=== PATIENT | female | born 1975 | race Caucasian/White ===

== ENCOUNTER 2024-03-05 06:56 | Outpatient (OUT) | payer OTHER, SELFPAY ==
--- NOTE | 2024-03-05 07:00 | MM_ITS ---
Patient Name: CAROLINE RAMIREZ MR#: [id number] : 1975 Exam Date: 03/05/2024 Ordering Doctor: DR Radha Brian M.D. RADIOLOGY REPORT PROCEDURE: MM TOMOSYNTHESIS SCREENING BI COMPARISON: MAMMO BILL SCREEN W CAD DIG, 01/13/2013. MG MAMM SCREEN BILL W CAD, 07/10/2018. INDICATIONS: Screening Calculator Name NCI Breast Cancer Risk Assessment Tool 5 Year Breast Cancer Risk 0.90% Lifetime Breast Cancer Risk 10.50% Personal Breast Cancer No Personal Ovarian Cancer No Treatments None Family Cancers None LOCATION: [facility] BREAST COMPOSITION: The breasts are heterogeneously dense,which may obscure small masses. FINDINGS: DIAGNOSTIC CATEGORY 2--BENIGN FINDING. NO CHANGE FROM COMPARISON. Scattered benign-appearing nodules are present. Scattered benign-appearing calcifications are present. Scattered benign-appearing lymph nodes are present. RIGHT BREAST: No significant suspicious finding. LEFT BREAST: No significant suspicious finding. RECOMMENDATIONS: ROUTINE MAMMOGRAM AND CLINICAL EVALUATION IN 12 MONTHS. PLEASE NOTE: A NORMAL MAMMOGRAM DOES NOT EXCLUDE THE POSSIBILITY OF BREAST CANCER. A CLINICALLY SUSPICIOUS PALPABLE LUMP SHOULD BE BIOPSIED. Dictated by: Chapito Alves MD on 03/24/2024 at 13:47 Approved by: Chapito Alves MD on 03/24/2024 at 13:52
== END 2024-03-05 06:57 | disposition home or self-care (01) ==
LOC: MAMMO 06:56
PROVIDERS: PCP Family Medicine; Visit Provider Family Medicine
DX: Z12.31 Encounter for screening mammogram for malignant neoplasm of breast (principal)
CPT/HCPCS: 77063; 77067

== ENCOUNTER 2025-07-11 07:31 | Outpatient (OUT) | payer OTHER, SELFPAY ==
--- OUTSIDE RECORDS SUMMARY | 2021-11-15 12:15 | XMS_ITS | Continuity of Care Document ---
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 Name Role Phone Mart Brown Unavailable Unavailable Procedures Procedure Date CHIROPRACTIC MANIPULATION CHIROPRACTIC MANIPULATION CHIROPRACTIC MANIPULATION CHIROPRACTIC MANIPULATION CHIROPRACTIC MANIPULATION CHIROPRACTIC MANIPULATION CHIROPRACTIC MANIPULATION CHIROPRACTIC MANIPULATION CHIROPRACTIC MANIPULATION CHIROPRACTIC MANIPULATION CHIROPRACTIC MANIPULATION CHIROPRACTIC MANIPULATION CHIROPRACTIC MANIPULATION CHIROPRACTIC MANIPULATION CHIROPRACTIC MANIPULATION CHIROPRACTIC MANIPULATION CHIROPRACTIC MANIPULATION CHIROPRACTIC MANIPULATION CHIROPRACTIC MANIPULATION CHIROPRACTIC MANIPULATION CHIROPRACTIC MANIPULATION CHIROPRACTIC MANIPULATION CHIROPRACTIC MANIPULATION CHIROPRACTIC MANIPULATION CHIROPRACTIC MANIPULATION CHIROPRACTIC MANIPULATION CHIROPRACTIC MANIPULATION Covid Testing [facility] Advance Directives Directive Yes / No Effective Date File Name No Information Encounters Encounter Description Practice Location Reason(s) For Visit Diagnoses Date Provider Providers Copied on Encounter [facility], [address] [place] [address], [id number] , [place] tel: [phone] [facility] cervical spine (chief complaint) cervical spine (chief complaint) Segmental and somatic dysfunction of cervical regionCervicalgiaSegm ental and somatic dysfunction of lumbar region 2 Kevin Cevallos. [address] [place], [place], [id number] , [place]. tel: [phone] [facility], [address] [place] [address], [id number] , [place] tel: [phone] [facility] cervical spine (chief complaint) cervical spine (chief complaint) Segmental and somatic dysfunction of cervical regionCervicalgiaSegm ental and somatic dysfunction of lumbar region 1 Kevin Cevallos. [address] [place] [address], [id number] , [place]. tel: [phone] [facility], [address] [place] [address], [id number] , [place] tel: [phone] [facility] cervical spine (chief complaint) cervical spine (chief complaint) Segmental and somatic dysfunction of cervical regionCervicalgiaSegm ental and somatic dysfunction of thoracic region 1 Kevin Cevallos. [address] [place] [address], [id number] , [place]. tel: [phone] [facility], [address] [place] [address], [id number] , [place] tel: [phone] [facility] cervical spine (chief complaint) cervical spine (chief complaint) Segmental and somatic dysfunction of cervical regionCervicalgiaSegm ental and somatic dysfunction of lumbar region 1 Kevin Cevallos. [address] [place] [address], [id number] , [place]. tel: [phone] [facility], [address] [place] [address], [id number] , [place] tel: [phone] [facility] cervical spine (chief complaint) cervical spine (chief complaint) Segmental and somatic dysfunction of cervical regionCervicalgiaSegm ental and somatic dysfunction of thoracic region 1 Kevin Cevallos. [address] [place], [place], [id number] , [place]. tel: [phone] [facility], [address] [place] [address], [id number] , [place] tel: [phone] [facility] cervical spine (chief complaint) cervical spine (chief complaint) Segmental and somatic dysfunction of cervical regionCervicalgiaSegm ental and somatic dysfunction of lumbar region 1 Kevin Cevallos. [address] [place] [address], [id number] , [place]. tel: [phone] [facility], [address] [place] [address], [id number] , [place] tel: [phone] [facility] cervical spine (chief complaint) cervical spine (chief complaint) Segmental and somatic dysfunction of cervical regionCervicalgiaSegm ental and somatic dysfunction of thoracic regionPain in thoracic spine 1 Kevin Cevallos. [address] [place] [address], [id number] , [place]. tel: [phone] [facility], [address] [place] [address], [id number] , [place] tel: [phone] [facility] cervical spine (chief complaint) cervical spine (chief complaint) Segmental and somatic dysfunction of cervical regionCervicalgiaSegm ental and somatic dysfunction of thoracic region 1 Kevin Cevallos. [address] [place] [address], [id number] , [place]. tel: [phone] [facility], [address] [place] [address], [id number] , [place] tel: [phone] [facility] cervical spine (chief complaint) cervical spine (chief complaint) Segmental and somatic dysfunction of cervical regionCervicalgiaSegm ental and somatic dysfunction of thoracic region Dec-0 1 Kevin Cevallos. [address] [place] [address] [place], [id number] , [place]. tel: [phone] [facility], [address] [place], [place], [id number] , [place] tel: [phone] [facility] cervical spine (chief complaint) cervical spine (chief complaint) Segmental and somatic dysfunction of cervical regionCervicalgiaSegm ental and somatic dysfunction of thoracic region 1 Kevin Cevallos. [address] [place], [place], [id number] , [place]. tel: [phone] [facility], [address] [place] [address], [id number] , [place] tel: [phone] [facility] cervical spine (chief complaint) cervical spine (chief complaint) Segmental and somatic dysfunction of cervical regionCervicalgiaHead ache, unspecifiedSegmental and somatic dysfunction of thoracic region 1 Kevin Cevallos. [address] [place] [address], [id number] , [place]. tel: [phone] [facility], [address] [place] [address], [id number] , [place] tel: [phone] [facility] cervical spine (chief complaint) cervical spine (chief complaint) Segmental and somatic dysfunction of cervical regionCervicalgiaHead ache, unspecifiedSegmental and somatic dysfunction of thoracic region 1 Kevin Cevallos. [address] [place] [address], [id number] , [place]. tel: [phone] [facility], [address] [place] [address], [id number] , [place] tel: [phone] [facility] cervical spine (chief complaint) cervical spine (chief complaint) Segmental and somatic dysfunction of cervical regionCervicalgiaHead ache, unspecifiedSegmental and somatic dysfunction of thoracic region 1 Kevin Cevallos. [address] [place] [address], [id number] , [place]. tel: [phone] [facility], [address] [place] [address], [id number] , [place] tel: [phone] [facility] cervical spine (chief complaint) cervical spine (chief complaint) Segmental and somatic dysfunction of cervical regionCervicalgiaHead ache, unspecifiedSegmental and somatic dysfunction of thoracic region 0 3-202 0 Kevin Cevallos. [address] [place], [place], [id number] , [place]. tel: [phone] [facility], [address] [place], [place], [id number] , [place] tel: [phone] [facility] cervical spine (chief complaint) cervical spine (chief complaint) Segmental and somatic dysfunction of cervical regionCervicalgiaSegm ental and somatic dysfunction of thoracic region 0 Kevin Cevallos. [address] [place] [address], [id number] , [place]. tel: [phone] [facility], [address] [place] [address], [id number] , [place] tel: [phone] [facility] cervical spine (chief complaint) cervical spine (chief complaint) Segmental and somatic dysfunction of cervical regionCervicalgiaHead ache, unspecifiedSegmental and somatic dysfunction of thoracic region 0-202 0 Kevin Cevallos. [address] [place] [address], [id number] , [place]. tel: [phone] [facility], [address] [place] [address], [id number] , [place] tel: [phone] [facility] cervical spine (chief complaint) cervical spine (chief complaint) Segmental and somatic dysfunction of cervical regionCervicalgiaSegm ental and somatic dysfunction of thoracic region 5 0 Kevin Cevallos. [address] [place] [address], [id number] , [place]. tel: [phone] [facility], [address] [place] [address], [id number] , [place] tel: [phone] [facility] cervical spine (chief complaint) cervical spine (chief complaint) Segmental and somatic dysfunction of lumbar regionSegmental and somatic dysfunction of cervical regionCervicalgia 0 Kevin Cevallos. [address] [place], [place], [id number] , [place]. tel: [phone] [facility], [address] [place], [place], [id number] , [place] tel: [phone] [facility] cervical spine (chief complaint) cervical spine (chief complaint) Segmental and somatic dysfunction of cervical regionCervicalgiaSegm ental and somatic dysfunction of thoracic region 0 Kevinbakari Cevallos. [address] [place] [address], [id number] , [place]. tel: [phone] [facility], [address] [place] [address], [id number] , [place] tel: [phone] [facility] cervical spine (chief complaint) cervical spine (chief complaint) Segmental and somatic dysfunction of cervical regionCervicalgiaHead ache, unspecifiedSegmental and somatic dysfunction of thoracic region 0 Kevin Cevallos. [address] [place] [address], [id number] , [place]. tel: [phone] [facility], [address] [place] [address], [id number] , [place] tel: [phone] [facility] cervical spine (chief complaint) cervical spine (chief complaint) Segmental and somatic dysfunction of cervical regionCervicalgiaHead acheSegmental and somatic dysfunction of thoracic region Jun-3 0 Kevin Cevallos. [address] [place] [address], [id number] , [place]. tel: [phone] [facility], [address] [place] [address], [id number] , [place] tel: [phone] [facility] cervical spine (chief complaint) cervical spine (chief complaint) Segmental and somatic dysfunction of cervical regionCervicalgiaSegm ental and somatic dysfunction of thoracic region Jun- 0 Kevin Cevallos. [address] [place] [address], [id number] , [place]. tel: [phone] [facility], [address] [place] [address], [id number] , [place] tel: [phone] [facility] cervical spine (chief complaint) cervical spine (chief complaint) Segmental and somatic dysfunction of cervical regionCervicalgiaSegm ental and somatic dysfunction of lumbar region Jun-0 4-202 0 Kevin Cevallos. [address] [place], [place], [id number] , [place]. tel: [phone] [facility], [address] [place] [address], [id number] , [place] tel: [phone] [facility] cervical spine (chief complaint) cervical spine (chief complaint) Segmental and somatic dysfunction of cervical regionCervicalgiaSegm ental and somatic dysfunction of lumbar region 0-202 0 Kevin Cevallos. [address] [place] [address], [id number] , [place]. tel: [phone] [facility], [address] [place] [address], [id number] , [place] tel: [phone] [facility] cervical spine (chief complaint) cervical spine (chief complaint) Segmental and somatic dysfunction of cervical regionCervicalgiaSegm ental and somatic dysfunction of lumbar region 5-202 0 Kevin Cevallos. [address] [place] [address], [id number] , [place]. tel: [phone] [facility], [address] [place] [address], [id number] , [place] tel: [phone] [facility] cervical spine (chief complaint) cervical spine (chief complaint) Segmental and somatic dysfunction of cervical regionCervicalgiaHead acheSegmental and somatic dysfunction of lumbar region 8-202 0 Kevin Cevallos. [address] [place] [address], [id number] , [place]. tel: [phone] [facility], [address] [place] [address], [id number] , [place] tel: [phone] [facility] cervical spine (chief complaint) cervical spine (chief complaint) Segmental and somatic dysfunction of cervical regionCervicalgiaSegm ental and somatic dysfunction of lumbar regionLow back pain Mar-2 0 Kevin Cevallos. [address] [place], [place], [id number] , [place]. tel:[phone] [facility], [address] [place], [place], [id number] , [place] tel: [phone] SYLWIAKHOA JAKUB Encounter for screening for other viral diseases 0 Zoya DO [place]. [address] [place], [place], [id number] , [place]. tel: [phone] Family History Family Member Type Diagnosis Age At Onset No Information Payers Payer name Insurance type Covered constitution party ID Authoryarelis gray(s) [employer] [place] [employer] [id number] Social History Type Description Quantity Date Captured Comments Alcohol Use Details Unknown Caffeine Use Details Unknown Tobacco Use Status No Information Smoking Status No Information Sex Female Sexual Orientation Straight or heterosexual Gender Identity Female Chief Complaint And Reason For Visit From encounter dated '11/15/2021 16:15'. cervical spine (chief complaint) cervical spine (chief complaint). Description: Pt reports tightness in neck and low back this week Reason For Referral Reason For Referral No Information History Of Present Illness Encounter Date Complaint History Of Prese nt Illness cervical spine Pt reports tight ness in neck and low back this week cervical spine cervical spine cervical spine Pt reports sligh t improvement since last visit. cervical spine cervical spine Pt presents with tension in neck and shoulders this week cervical spine cervical spine Pt presents with tightness in neck and low back this week. cervical spine cervical spine Pt presents with tightness in neck and mid back cervical spine cervical spine Pt presents with tightness in neck cervical spine cervical spine Pt reports stiff ness in neck and upper back this week. cervical spine cervical spine Pt reports tight ness in neck and mid back this week. cervical spine cervical spine Pt reports tight ness in neck and upper back this week. cervical spine cervical spine Pt presents with tightness in neck and upper back. cervical spine cervical spine Pt reports sligh t improvement since last visit. cervical spine Pt reports impro vement with headache today. cervical spine cervical spine cervical spine Pt reports neck soreness and headaches for last few days. cervical spine cervical spine Pt reports neck stiffness along with headache this week. cervical spine cervical spine Pt presents with tightness in neck and mid back today cervical spine cervical spine Pt reports wakin g up with headache today. cervical spine cervical spine Pt reports tight ness in neck and mid back this week. cervical spine cervical spine Pt reports marissa ess in neck and low back this week. cervical spine cervical spine Pt reports tight ness in neck and upper back this week. cervical spine cervical spine Pt reports neck stiffness and headache this week. cervical spine cervical spine Pt reports heada nadira for last two days and feels like it's coming from neck. cervical spine cervical spine Pt reports stiff ness in neck and upper back this week. cervical spine cervical spine Pt presents with tightness in neck and upper back this week. cervical spine cervical spine Pt reports tight ness in neck and upper back. cervical spine cervical spine Pt reports neck feeling a little better this week. cervical spine cervical spine Pt reports wakin g up with headache this morning. cervical spine cervical spine C/O neck pain an d low back pain with onset years ago. Pt experiences frequent flare ups due to ADL's.No specific injury or trauma is noted. Pain primarily at the cervicobrachial area and extends out to the trap and scapular border on the Rt. & Lt. Pain is local, dull, and without radiation to the upper extremities. Sx present with a pain scale of 7 (VAS = 1-10). Pain interferes with regular ADL's. Increase in pain with movement/ROM and ADL'S. Some decrease in Sx with rest. No change in the pain pattern from the onset of Sx. Functional Status Date Functional Assessmen t No Information Instructions Date Instruction Additional Infor mation No Information Assessments Type Assessment Date assessment Segmental and somatic dysfunctio n of cervical region assessment Cervicalgia assessment Segmental and somatic dysfunctio n of lumbar region impression Patient Care Teams Name Effective Dates (start - stop) Status Members No Information
--- OUTSIDE RECORDS SUMMARY | 2025-07-11 07:34 | XMS_ITS | CCD ---
Author Organization [facility] Care Team Providers Care Engineering Technical Writer Name Role Phone Radha Cardozo MD Primary Care Provider FARA BECKMAN Referring Unavailable RADHA CARDOZO Primary Care Unavailable FARA BECKMAN Referring Unavailable RADHA CARDOZO Primary Care Unavailable RADHA CARDOZO Primary Care Unavailable FARA BECKMAN Referring Unavailable JULIANE, DR RADHA Hogue Admitting Unavailable JULIANE, DR RADHA Hogue Attending Unavailable JULIANE, DR RADHA Hogue Primary Care Unavailable WEST, DR STEPHANIE Gomez Consulting Unavailable JULIANE, DR RADHA Hogue Consulting Unavailable Radha Cardozo Unavailable MD Radha Cardozo Primary Care Provider [phone] MD Reyes Love Attending Provider [phone] Radha Cardozo MD Primary Care Provider [phone] Mart Stanley MD Unavailable Radha Cardozo MD Primary Care Provider Reyes Love MD Attending Provider Reyes Love Admitting Unavailable Radha Cardozo Primary Care Unavailable Reyes Love Attending Unavailable Radha Cardozo Primary Care Unavailable Reyes Love Attending Unavailable Reyes Love Admitting Unavailable Radha Cardozo MD Primary Care Provider [phone] MONA SNIDER Attending Unavailable Radha Cardozo MD Primary Care Provider [phone] Radha Cardozo MD Attending Provider Allergies Allergy Classification Reported Allergen(s) Allergy Type Date of Onset Reaction(s) Facility terbinafine (3 sources) terbinafine Drug Allergy 1 [employer] (10 sources) terbinafine Drug Allergy [employer] Other (1 source) terbinafine Drug Allergy Unknown [employer] Other (1 source) patient allergy list reviewed by nurse or physicia Propensity to adverse reactions 8 Comment:Done [employer] Other (1 source) Allergies Reconciled Propensity to adverse reactions Unknown [employer] Other (18 sources) terbinafine Drug Allergy 1 [facility] (12 sources) Starch; Translations: [starch] Drug Allergy 4 [facility] (12 sources) Talc; Translations: [talc] Drug Allergy 4 [facility] (1 source) terbinafine Drug Allergy 5 [facility] Repository Medications Current Medications Medication Drug Class(es) Dates Sig (Normalized) Sig (Original) acetaminophen 325 mg / oxyCODONE hydrochloride 5 mg oral tablet (20 sources) Opioid Agonist Start: 01-22-2025 End: 05-21-2025 take 1 tablet by mouth every eight hours as needed for pain Oxycodone-Acetami nophen (Percocet) 5-325 mg tablet Active 1 TAB PO Every 8 hours as needed for pain 80 May 21, 2025 Complies with drug therapy Start: 12-19-2023 End: 01-21-2025 take 1 tablet by mouth every eight hours as needed for pain Oxycodone-Acetaminophen (Percocet) 5-325 mg tablet Discontinued 1 TAB PO Every 8 hours as needed for pain 80 August 30, 2024 September 27, 2024 11:14am Start: 10-25-2023 take 1 tablet by irma th twice daily as needed Percocet 5-325 MG 1 tablet as needed Orally bid prn Sep, Active Start: 09-24-2023 take 1 tablet by irma th twice daily as needed Percocet 5-325 MG 1 tablet as needed Orally bid prn for 30 days Aug, Active Start: 08-27-2023 take 1 tablet by irma th twice daily as needed Percocet 5-325 MG 1 tablet as needed Orally bid prn for 30 days Aug, Active Start: 07-30-2023 take 1 tablet by irma th twice daily as needed Percocet 5-325 MG 1 tablet as needed Orally bid prn for 30 days Jul, Active Start: 07-03-2023 take 1 tablet by irma th twice daily as needed Percocet 5-325 MG 1 tablet as needed Orally bid prn for 30 days Jun, Active Start: 03-05-2023 take 1 tablet by irma th twice daily as needed Percocet 5-325 MG 1 tablet as needed Orally bid prn for 30 days February, Active Start: 02-06-2023 take 1 tablet by irma th twice daily as needed Percocet 5-325 MG 1 tablet as needed Orally bid prn for 30 days Jan, Active Start: 01-09-2023 take 1 tablet by irma th twice daily as needed Percocet 5-325 MG 1 tablet as needed Orally bid prn for 30 days Dec, Active Start: 12-13-2022 take 1 tablet by irma th twice daily as needed Percocet 5-325 MG 1 tablet as needed Orally bid prn for 30 days Nov, Active Start: 04-23-2018 take 2 tablets by mo tnh every four hours as needed oxyCODONE-acetaminophen (PERCOCET) 5-325 MG per tablet TAKE 2 TABLETS BY MOUTH EVERY 4 HOURS NEEDED 0 04/23/2018 Active SUMAtriptan 50 mg oral tablet (3 sources) Serotonin-1b and Serotonin-1d Receptor Agonist Start: 02-23-2021 SUMAtriptan (IMITREX ) 50 MG tablet Ubrelvy 100 MG (4 sources) Ubrelvy 100 MG 1 tablet may take second dose at least 2 hours after first dose as needed Orally Once a day Active ZOLMitriptan 5 mg/actuat nasal spray (20 sources) Serotonin-1b and Serotonin-1d Receptor Agonist Start: 12-21-2024 ZOLMitriptan (Zomig) 5 MG nasal solution Indications: Migraine, unspecified, not intractable, without status migrainosus (CMS/HCC) PLEASE SEE ATTACHED FOR DETAILED DIRECTIONS 6 each 3 12/21/2024 Active Start: 08-23-2024 ZOLMitriptan ( Zomig) 5 MG nasal solution Indications: Migraine, unspecified, not intractable, without status migrainosus (CMS/HCC) PLEASE SEE ATTACHED FOR DETAILED DIRECTIONS 6 each 3 08/23/2024 Active Start: 04-05-2024 End: 08-23-2024 ZOLMitriptan (Zomig) 5 MG na orin solution Indications: Migraine, unspecified, not intractable, without status migrainosus ([facility]) USE 1 SPRAY IN ONE NOSTRIL AT ONSET OF HEADACHE. MAY REPEAT AFTER 2 HOURS (UP TO 2 DOSES PER 24 HOURS NEEDED) 6 each 3 04/05/2024 08/23/2024 Discontinued Start: 02-13-2024 End: 05-21-2025 Zolmitriptan 5 mg spray,non- aerosol Active 0 INTRANASAL .COMPLEX 6 May 21, 2025 7:10am intranasally; [employer] spray at onset of headache may repeat after 2 hours up to 10 mg per 24 hours as needed Nasally Once a day; Note: Source Status: Continue; Provider: Juliane Garcia ( ) Complies with drug therapy Start: 02-13-2024 Zolmitriptan A ctive INTRANASAL February 13, 2024 12:00am [employer] spray at onset of headache may repeat after 2 hours up to 10 mg per 24 hours as needed Nasally Once a day; Note: Source Status: Continue; Provider: Juliane Garcia ( ) Zomig 5 MG 1 spr ay at onset of headache may repeat after 2 hours up to 10 mg per 24 hours as needed Nasally Once a day Active Completed/Discontinued Medications Medication Drug Class(es) Dates Sig (Normalized) Sig (Original) diclofenac sodium 75 mg delayed release oral tablet (10 sources) Nonsteroidal Anti-inflammatory Drug Start: 03-23-2024 End: 05-25-2024 take 1 tablet by mouth twice daily Diclofenac Sodium 75 mg tablet,delayed release (DR/EC) Discontinued 75 MG PO Twice daily 60 30 March 23, 2024 12:00am May 25, 2024 11:41am tiZANidine 4 mg oral tablet (20 sources) Central alpha-2 Adrenergic Agonist Start: 02-11-2024 End: 12-24-2024 take 1 tablet by mouth once daily at bedtime Tizanidine 4 mg tablet Discontinued 4 MG PO Daily at bedtime 90 90 May 25, 2024 11:41am September 27, 2024 11:14am Start: 02-11-2024 End: 05-25-2024 take 1 tablet by mouth three times daily as needed Tizanidine 4 mg tablet Discontinued 4 MG PO Three times daily February 13, 2024 12:00am May 25, 2024 11:46am [employer] tablet as needed Orally Three times a day; Note: Source Status: Continue; Provider: Juliane Garcia ( ) Start: 02-12-2018 take 1 tablet by irma th at bedtime tiZANidine (ZANAFLEX) 4 MG tablet TAKE 1/2-1 TABLET BY MOUTH AT BEDTIME 0 02/12/2018 Active traMADol hydrochloride 50 mg oral tablet (20 sources) Opioid Agonist Start: 02-12-2024 End: 02-16-2024 take 1 tablet by mouth three times daily Tramadol 50 mg tablet Discontinued 50 MG PO Three times daily February 12, 2024 12:00am February 16, 2024 11:40am Start: 10-01-2023 take 1 tablet by irma th three times daily as needed traMADol HCl 50 MG TAKE 1 TABLET BY MOUTH THREE TIMES DAILY NEEDED Sep, Active Start: 07-30-2023 take 1 tablet by irma th three times daily as needed traMADol HCl 50 MG TAKE 1 TABLET BY MOUTH THREE TIMES DAILY NEEDED for 30 Jul, Active Start: 06-11-2023 take 1 tablet by irma th three times daily as needed traMADol HCl 50 MG TAKE 1 TABLET BY MOUTH THREE TIMES DAILY NEEDED for 30 May, Active Start: 02-20-2023 take 1 tablet by irma th three times daily as needed traMADol HCl 50 MG TAKE 1 TABLET BY MOUTH THREE TIMES DAILY, NEEDED for 30 Jan, Active Start: 12-13-2022 take 1 tablet by irma th three times daily as needed traMADol HCl 50 MG TAKE 1 TABLET BY MOUTH THREE TIMES DAILY, NEEDED 30 for 30 Dec, Active Start: 04-14-2018 take 1 tablet by irma th every eight hours as needed traMADol (ULTRAM) 50 MG tablet TAKE 1 TABLET BY MOUTH EVERY 8 HOURS NEEDED 3 04/14/2018 Active Problems Active Problems Problem Classification Problem Date Documented Da te Episodic/Chronic Blindness and vision defects (10 sources) Bilateral myopia of eyes; Translations: [Myopia, bilateral] Episodic Deficiency and other anemia (11 sources) Anemia; Translations: [Anemia, unspecified] Episodic Headache; including migraine (20 sources) Migraine with aura; Translations: [Migraine with aura, not intractable, without status migrainosus] Chronic Other circulatory disease (1 source) Elevated blood-pressure reading without diagnosis of hypertension; Translations: [Elevated blood-pressure reading, without diagnosis of hypertension] Episodic Other connective tissue disease (10 sources) Pain in left foot; Translations: [Pain in left foot] Episodic Other connective tissue disease (10 sources) Muscle pain; Translations: [Myalgia, unspecified site] 03-23-2024 Episodic Other connective tissue disease (10 sources) Myalgia, unspecified site; Translations: [Myalgia and myositis, unspecified] 03-23-2024 Episodic Other connective tissue disease (4 sources) Trochanteric bursitis; Translations: [Trochanteric bursitis, left hip] 12-20-2024 Episodic Other connective tissue disease (3 sources) Trochanteric bursitis, left hip; Translations: [Enthesopathy of hip region] 12-20-2024 Episodic Other connective tissue disease (3 sources) Trochanteric bursitis of left hip; Translations: [Trochanteric bursitis, left hip] 12-20-2024 Episodic Other nervous system disorders (20 sources) Chronic pain; Translations: [Other chronic pain] 03-23-2024 Chronic Other nervous system disorders (11 sources) Other chronic pain; Translations: [Other chronic pain] Onset: 12-20-2024 03-23-2024 Chronic Other nervous system disorders (2 sources) Chiari malformation type I; Translations: [Compression of brain] 02-21-2025 Chronic Other non-traumatic joint disorders (10 sources) Knee pain; Translations: [Pain in left knee] Episodic Other screening for suspected conditions (not mental disorders or infectious disease) (20 sources) Patient encounter status; Translations: [Encounter for screening mammogram for malignant neoplasm of breast] Episodic Residual codes; unclassified (1 source) Normal body mass index; Translations: [Body mass index (BMI) 22.0-22.9, adult] Episodic Spondylosis; intervertebral disc disorders; other back problems (18 sources) Cervical spondylosis; Translations: [Other spondylosis with radiculopathy, cervical region] Onset: 12-20-2024 12-20-2024 Chronic Spondylosis; intervertebral disc disorders; other back problems (20 sources) Pain in thoracic spine; Translations: [Pain in thoracic spine] Onset: 06-07-2014 Episodic Viral infection (1 source) Verruca vulgaris; Translations: [Viral wart, unspecified] Episodic Past or Other Problems Problem Classification Problem Date Documented Date Episodic/Chronic Allergic reactions (1 source) Allergic urticaria; Translations: [Allergic urticaria] Onset: 09-25-2018 Episodic Bacterial infection; unspecified site (1 source) Bacterial infectious disease; Translations: [Bacterial infection, unspecified, in conditions classified elsewhere and of unspecified site] Onset: 02-05-2017 Episodic Genitourinary symptoms and ill-defined conditions (1 source) Dysuria; Translations: [Dysuria] Onset: 02-22-2019 Episodic Headache; including migraine (5 sources) Headache; including migraine; Translations: [HEADACHE UNSPECIFIED] Onset: 12-27-2022 Mycoses (1 source) Onychomycosis due to dermatophyte ; Translations: [Dermatophytosis of nail] Onset: 09-08-2018 Episodic Other lower respiratory disease (1 source) Dyspnea; Translations: [Other dyspnea and respiratory abnormalities] Onset: 06-26-2017 Episodic Other non-traumatic joint disorders (1 source) Arthralgia of the lower leg; Translations: [Pain in joint, lower leg] Onset: 09-03-2016 Episodic Other non-traumatic joint disorders (1 source) Arthralgia of the pelvic region and thigh; Translations: [Pain in joint, pelvic region and thigh] Onset: 01-19-2015 Episodic Other upper respiratory infections (1 source) Acute maxillary sinusitis; Translations: [Acute recurrent maxillary sinusitis] Onset: 06-28-2016 Episodic Screening and history of mental health and substance abuse codes (1 source) History of tobacco use; Translations: [Personal history of tobacco use, presenting hazards to health] Onset: 02-05-2017 Episodic Unclassified (1 source) Frequent headaches R51.9 Urinary tract infections (1 source) Acute cystitis; Translations: [Acute cystitis without hematuria] Onset: 02-05-2017 Episodic Results Test Name Value Interpretation Reference Range Facility X-ray reportOrdered By: Jose E Estrella on 12-20-2024 Study report [facility] [address] [place] [address] XRay Report Signed Patient: Hanna Ramirez MR#: [id number] : 1975 Acct:[id number] Age/Sex: 49 / F ADM Date: 5 Loc: [facility] Room: Type: REG CLI Attending Dr: Reyes Love MD Copies to: Reyes Love MD~ Ordering Provider: Reyes Love MD Date of Service: 12/20/24 XR/XR hip LT min 2V(w/wo pelvis)*: G89.29 - Other chronic pain XR hip LT min 2V(w/wo pelvis)* 12/20/2024 8:30 AM SIGNS AND SYMPTOMS: Left gluteal pain/tenderness PROTOCOL: Frontal radiograph the pelvis with frog-leg view of the left hip COMPARISON: None FINDINGS: The bones are in anatomic alignment. The bony ring of the pelvis is intact. The joint spaces of the hips are preserved. The sacroiliac joints are preserved. XR/XR hip LT min 2V(w/wo pelvis)* IMPRESSION: No acute bony injury or significant degenerative change. Impression dictated by: Jose E Estrella M.D.12/20/2024 10:50 AM Dictation Location: [place] [address] Transcribed By: [facility] 12/20/24 1050 Dictated By: Jose E Estrella II, MD 12/20/24 1050 Signed By: 12/20/24 1050 [facility] Work Phone: Study report [facility] [address] [place] [address] XRay Report Signed Patient: Hanna Ramirez MR#: [id number] : 1975 Acct:[id number] Age/Sex: 49 / F ADM Date: 5 Loc: [facility] Room: Type: REG CLI Attending Dr: Reyes Love MD Copies to: Reyes Love MD~ Ordering Provider: Reyes Love MD Date of Service: 12/20/24 XR/XR lumbar spine AP/LAT/FLX/EXT: M46.1 - Sacroiliitis, not elsewhere classified XR lumbar spine AP/LAT/FLX/EXT 12/20/2024 8:30 AM SIGNS AND SYMPTOMS: Left gluteal pain and tenderness PROTOCOLS: Frontal, lateral, and flexion-extension views of the lumbar spine COMPARISON: None FINDINGS: There is a dextro convex curvature of the lumbar spine. There is minimal intervertebral disc height loss at L2-L3. There is anterior osteophyte formation at L2-L3, L3-L4, and L4-5. Minor facet degenerative changes are present in the lower lumbar spine. Flexion and extension view show no pathologic movement. The sacrum and sacroiliac joints are normal. XR/XR lumbar spine AP/LAT/FLX/EXT IMPRESSION: No fracture, subluxation, or pathologic movement. Minimal degenerative changes are noted as above with a slight dextro convex curvature. Impression dictated by: Jose E Estrella M.D.12/20/2024 10:47 AM Dictation Location: [place] [address] Transcribed By: [facility] 12/20/24 104 Dictated By: Jose E Estrella II, MD 12/20/241046 Signed By: 12/20/241046 [facility] Work Phone: Study report [facility] [address] [place] [address] XRay Report Signed Patient: Hanna Ramirez MR#: [id number] : 1975 Acct:[id number] Age/Sex: 49 / F ADM Date: 5 Loc: [facility] Room: Type: [facility] CLI Attending Dr: Reyes Love MD Copies to: Reyes Love MD~ Ordering Provider: Reyes Love MD Date of Service: 12/20/24 XR/XR cerv spine AP/LAT/FLX/EXT: M47.22 - Other spondylosis with radiculopathy, cervical r... XR cerv spine AP/LAT/FLX/EXT 12/20/2024 8:30 AM SIGNS AND SYMPTOMS: Neck pain radiating to left upper extremity PROTOCOLS: Frontal, lateral, and flexion-extension views of the cervical spine COMPARISON: None FINDINGS: There is straightening of the normal cervical lordosis which may be positional or secondary to muscle spasm. No pathologic movement on flexion or extension. There is preservation of the vertebral body heights and intervertebral disc spaces. There is no fracture or destructive lesion. XR/XR cerv spine AP/LAT/FLX/EXT IMPRESSION: There is straightening of the normal cervical lordosis which may be positional or secondary to muscle spasm. No pathologic movement on flexion or extension. No significant degenerative change. Impression dictated by: Jose E Estrella M.D.12/20/2024 10:41 AM Dictation Location: [place] [address] Transcribed By: [facility] 12/20/24 1041 Dictated By: Jose E Estrella II, MD 12/20/24 1040 Signed By: 12/20/24 1041 [facility] Work Phone: XR cerv spine AP/LAT/FLX/EXT on 12-20-2024 XR cerv spine AP/LAT/FLX/EXT [facility] [address] [place] [address] XRay Report Signed Patient: Hanna Ramirez MR#: [id number] 4 : 1975 Acct:[id number] Age/Sex: 49 / F ADM Date: 12/20/24 Loc: [facility] Room: Type: [facility] Attending Dr: Reyes Love MD Copies to: Reyes Love MD Ordering Provider: Reyes Love MD Date of Service: 12/20/24 XR/XR cerv spine AP/LAT/FLX/EXT: M47.22 - Other spondylosis with radiculopathy, cervical r... XR cerv spine AP/LAT/FLX/EXT 12/20/2024 8:30 AM SIGNS AND SYMPTOMS: Neck pain radiating to left upper extremity PROTOCOLS: Frontal, lateral, and flexion-extension views of the cervical spine COMPARISON: None FINDINGS: There is straightening of the normal cervical lordosis which may be positional or secondary to muscle spasm. No pathologic movement on flexion or extension. There is preservation of the vertebral body heights and intervertebral disc spaces. There is no fracture or destructive lesion. XR/XR cerv spine AP/LAT/FLX/EXT IMPRESSION: There is straightening of the normal cervical lordosis which may be positional or secondary to muscle spasm. No pathologic movement on flexion or extension. No significant degenerative change. Impression dictated by: Jose E Estrella M.D.12/20/2024 10:41 AM Dictation Location: [facility]--24 Transcribed By: [facility] 12/20/24 1041 Dictated By: Jose E Estrella II, MD 12/20/24 1040 Signed By: 12/20/24 1041 Normal [facility] XR hip LT min 2V(w/wo pelvis )*on 12-20-2024 XR hip LT min 2V(w/wo pelvis)* [facility] [address] [place] [address] XRay Report Signed Patient: Hanna Ramirez MR#: [id number] 4 : 1975 Acct:[id number] Age/Sex: 49 / F ADM Date: 12/20/24 Loc: [facility] Room: Type: [facility] Attending Dr: Reyes Love MD Copies to: Reyes Love MD Ordering Provider: Reyes Love MD Date of Service: 12/20/24 XR/XR hip LT min 2V(w/wo pelvis)*: G89.29 - Other chronic pain XR hip LT min 2V(w/wo pelvis)* 12/20/2024 8:30 AM SIGNS AND SYMPTOMS: Left gluteal pain/tenderness PROTOCOL: Frontal radiograph the pelvis with frog-leg view of the left hip COMPARISON: None FINDINGS: The bones are in anatomic alignment. The bony ring of the pelvis is intact. The joint spaces of the hips are preserved. The sacroiliac joints are preserved. XR/XR hip LT min 2V(w/wo pelvis)* IMPRESSION: No acute bony injury or significant degenerative change. Impression dictated by: Jose E Estrella M.D.12/20/2024 10:50 AM Dictation Location: [facility] Transcribed By: [facility] 12/20/24 1050 Dictated By: Jose E Estrella II, MD 12/20/24 1050 Signed By: 12/20/24 105 Normal [facility] XR lumbar spine AP/LAT/FLX/E XTon 12-20-2024 XR lumbar spine AP/LAT/FLX/EXT [facility] [address] [place] [address] XRay Report Signed Patient: Hanna Ramirez MR#: [id number] 4 : 1975 Acct:[id number] Age/Sex: 49 / F ADM Date: 12/20/24 Loc: [facility] Room: Type: [facility] Attending Dr: Reyes Love MD Copies to: Reyes Love MD Ordering Provider: Reyes Love MD Date of Service: 12/20/24 XR/XR lumbar spine AP/LAT/FLX/EXT: M46.1 - Sacroiliitis, not elsewhere classified XR lumbar spine AP/LAT/FLX/EXT 12/20/2024 8:30 AM SIGNS AND SYMPTOMS: Left gluteal pain and tenderness PROTOCOLS: Frontal, lateral, and flexion-extension views of the lumbar spine COMPARISON: None FINDINGS: There is a dextro convex curvature of the lumbar spine. There is minimal intervertebral disc height loss at L2-L3. There is anterior osteophyte formation at L2-L3, L3-L4, and L4-5. Minor facet degenerative changes are present in the lower lumbar spine. Flexion and extension view show no pathologic movement. The sacrum and sacroiliac joints are normal. XR/XR lumbar spine AP/LAT/FLX/EXT IMPRESSION: No fracture, subluxation, or pathologic movement. Minimal degenerative changes are noted as above with a slight dextro convex curvature. Impression dictated by: Jose E Estrella M.D.12/20/2024 10:47 AM Dictation Location: [place] [address] Transcribed By: [facility] 12/20/24 1047 Dictated By: Jose E Estrella II, MD 12/20/24 1047 Signed By: 12/20/24 104 Normal [facility] XR thoracic spine 2Von 03-23 XR thoracic spine 2V [facility] [address] [address] XRay Report Signed Patient: Hanna Ramirez MR#: [id number] 4 : 1975 Acct:[id number] Age/Sex: 48 / F ADM Date: 03/23/24 Loc: [facility] Room: Type: [facility] Attending Dr: Reyes Love MD Copies to: Reyes Love MD Ordering Provider: Reyes Love MD Date of Service: 03/23/24 XR/XR thoracic spine 2V: M54.6 - Pain in thoracic spine XR thoracic spine 2V 03/23/2024 4:01 PM SIGNS AND SYMPTOMS: Chronic thoracic spine pain PROTOCOLS: Frontal and lateral radiographs of the thoracic spine COMPARISON: None FINDINGS: The bones are in anatomic alignment with preservation of vertebral body heights and intervertebral disc spaces. No evidence of fracture or bony destructive lesion. XR/XR thoracic spine 2V IMPRESSION: Negative Thoracic Spine. Impression dictated by: Jose E Estrella M.D.03/23/2024 5:10 PM Dictation Location: [facility]-- Transcribed By: [facility] 03/23/24 1710 Dictated By: Jose E Estrella II, MD 03/23/24 170 Signed By: 03/23/241709 Normal [facility] MRI BRAIN WO CONon MRI BRAIN WO CON EXAMINATION: MRI BRAIN WO CON, 12/27/2022 7:47 AM EST HISTORY: Headache COMPARISON: None. TECHNIQUE: MRI of the brain was performed without IV contrast. FINDINGS: CEREBRUM: No edema, hemorrhage, mass, acute infarction, or inappropriate atrophy. Minimal scattered hyperintense foci are present, nonspecific. CEREBELLUM: No edema, hemorrhage, mass, acute infarction, or inappropriate atrophy. Cerebellar tonsils up to 5 mm below the foramen magnum BRAINSTEM: No edema, hemorrhage, mass, acute infarction, or inappropriate atrophy. CSF SPACES: Ventricles, cisterns, and sulci are appropriate for age. No hydrocephalus, subarachnoid hemorrhage, or mass. SKULL: No mass or other significant visible lesion. SINUSES: Limited views demonstrate no significant mucosal thickening or fluid. ORBITS: Limited views are unremarkable. OTHER: Negative. IMPRESSION: Minimal white matter signal abnormality, nonspecific Low lying cerebellar tonsils Electronically authenticated by: STEPHANIE WIN Date: 2022-12-28 12:18 Normal [facility] MRI BRAIN WO CONon MRI BRAIN WO THU [place] Other [facility] JED DIGITAL DIAGNOSTIC UNILATERAL RIGHTon 04-05-2021 EULOGIO JED DIGITAL DIAGNOSTIC UNILATERAL RIGHT EULOGIO JED DIGITAL DIAGNOSTIC UNILATERAL RIGHT, US BREAST LIMITED RIGHT:04/05/2021 9:59 AM CLINICAL HISTORY:R92.8 Abnormal mammogram of right breast ICD10. COMPARISONS: 03/29/2021. TECHNIQUE: Focal compression 3D breast tomosynthesis was performed of the right breast. Directed ultrasound of the right breast was performed, with a regional survey. FINDINGS: There is persistence of a just over 1 cm mostly obscured nodule, which has somewhat well-defined margins on the focal compression views. A similar appearing smaller nodule is noted more anteriorly on mammography. On ultrasound, a simple cyst is noted at the 6:00 retroareolar position measuring approximately 1.2 x 0.9 x 0.5 cm, and a simple cyst at the 9:00 position 1 cm from the nipple measuring 7 x 6 x 4 mm, which account for the mammographic areas concern. IMPRESSION: BI-RADS 2 - BENIGN. ROUTINE FOLLOW-UP MAMMOGRAPHY IS SUGGESTED IN ONE YEAR. DENSITY: Scattered fibroglandular densities. Board Certified Radiologists. Accredited by the ACR and FDA. MAMMOGRAPHY IS VERY IMPORTANT TO YOUR HEALTH. THE [employer] GUIDELINES RECOMMEND THAT WOMEN 40 YEARS OF AGE AND OLDER SHOULD HAVE A MAMMOGRAM EVERY YEAR. A REMINDER LETTER WILL BE SENT AT THE APPROPRIATE TIME. Interpreted by: Mart Montaño MD Signed by: Mart Montaño MD 04/05/21 Final result Normal [facility] No Panel InformationOrdered By: Fara Beckman on 04-05-2021 BI-RADS 2 - BENIGN. ROUTINE FOLLOW-UP MAMMOGRAPHY IS SUGGESTED IN ONE YEAR. DENSITY: Scattered fibroglandular densities. Board Certified Radiologists. Accredited by the ACR and FDA. MAMMOGRAPHY IS VERY IMPORTANT TO YOUR HEALTH. THE [employer] GUIDELINES RECOMMEND THAT WOMEN 40 YEARS OF AGE AND OLDER SHOULD HAVE A MAMMOGRAM EVERY YEAR. A REMINDER LETTER WILL BE SENT AT THE APPROPRIATE TIME. [employer] Phone: [employer] JED DIGITAL DIAGNOSTIC UNILATERAL RIGHT, US BREAST LIMITED RIGHT:04/05/2021 9:59 AM CLINICAL HISTORY:R92.8 Abnormal mammogram of right breast ICD10. COMPARISONS: 03/29/2021. TECHNIQUE: Focal compression 3D breast tomosynthesis was performed of the right breast. Directed ultrasound of the right breast was performed, with a regional survey. FINDINGS: There is persistence of a just over 1 cm mostly obscured nodule, which has somewhat well-defined margins on the focal compression views. A similar appearing smaller nodule is noted more anteriorly on mammography. On ultrasound, a simple cyst is noted at the 6:00 retroareolar position measuring approximately 1.2 x 0.9 x 0.5 cm, and a simple cyst at the 9:00 position 1 cm from the nipple measuring 7 x 6 x 4 mm, which account for the mammographic areas concern. [employer] Phone: [facility], [facility] Incoming Radiant Results From [employer] - 04/05/2021 5:31 PM EDT [employer] JED DIGITAL DIAGNOSTIC UNILATERAL RIGHT, US BREAST LIMITED RIGHT:04/05/2021 9:59 AM CLINICAL HISTORY:R92.8 Abnormal mammogram of right breast ICD10. COMPARISONS: 03/29/2021. TECHNIQUE: Focal compression 3D breast tomosynthesis was performed of the right breast. Directed ultrasound of the right breast was performed, with a regional survey. FINDINGS: There is persistence of a just over 1 cm mostly obscured nodule, which has somewhat well-defined margins on the focal compression views. A similar appearing smaller nodule is noted more anteriorly on mammography. On ultrasound, a simple cyst is noted at the 6:00 retroareolar position measuring approximately 1.2 x 0.9 x 0.5 cm, and a simple cyst at the 9:00 position 1 cm from the nipple measuring 7 x 6 x 4 mm, which account for the mammographic areas concern. IMPRESSION: BI-RADS 2 - BENIGN. ROUTINE FOLLOW-UP MAMMOGRAPHY IS SUGGESTED IN ONE YEAR. DENSITY: Scattered fibroglandular densities. Board Certified Radiologists. Accredited by the ACR and FDA. MAMMOGRAPHY IS VERY IMPORTANT TO YOUR HEALTH. THE [employer] GUIDELINES RECOMMEND THAT WOMEN 40 YEARS OF AGE AND OLDER SHOULD HAVE A MAMMOGRAM EVERY YEAR. A REMINDER LETTER WILL BE SENT AT THE APPROPRIATE TIME. [facility] Phone: [facility] Phone: US BREAST LIMITED RIGHTon US BREAST LIMITED RIGHT EULOGIO JED DIGITAL DIAGNOSTIC UNILATERAL RIGHT, US BREAST LIMITED RIGHT:04/05/2021 9:59 AM CLINICAL HISTORY:R92.8 Abnormal mammogram of right breast ICD10. COMPARISONS: 03/29/2021. TECHNIQUE: Focal compression 3D breast tomosynthesis was performed of the right breast. Directed ultrasound of the right breast was performed, with a regional survey. FINDINGS: There is persistence of a just over 1 cm mostly obscured nodule, which has somewhat well-defined margins on the focal compression views. A similar appearing smaller nodule is noted more anteriorly on mammography. On ultrasound, a simple cyst is noted at the 6:00 retroareolar position measuring approximately 1.2 x 0.9 x 0.5 cm, and a simple cyst at the 9:00 position 1 cm from the nipple measuring 7 x 6 x 4 mm, which account for the mammographic areas concern. IMPRESSION: BI-RADS 2 - BENIGN. ROUTINE FOLLOW-UP MAMMOGRAPHY IS SUGGESTED IN ONE YEAR. DENSITY: Scattered fibroglandular densities. Board Certified Radiologists. Accredited by the ACR and FDA. MAMMOGRAPHY IS VERY IMPORTANT TO YOUR HEALTH. THE [employer] GUIDELINES RECOMMEND THAT WOMEN 40 YEARS OF AGE AND OLDER SHOULD HAVE A MAMMOGRAM EVERY YEAR. A REMINDER LETTER WILL BE SENT AT THE APPROPRIATE TIME. Interpreted by: Mart Montaño MD Signed by: Mart Montaño MD 04/05/21 Final result Normal [facility] EULOGIO JED DIGITAL SCREEN BILA Arvind 03-29-2021 EULOGIO JED DIGITAL SCREEN BILATERAL EULOGIO JED DIGITAL SCREEN BILATERAL : 03/29/2021 1:22 PM CLINICAL HISTORY: Z12.31 Encounter for screening mammogram for breast cancer ICD10. COMPARISONS: Outside study 07/10/2018. TECHNIQUE: Full field 3D breast tomosynthesis was performed. CAD analysis was performed and used in the interpretation. FINDINGS: An approximately 1.2 cm partially obscured density is noted within the posterior aspect of the right breast just lateral to the nipple. Focal compression mammography and probably directed ultrasound of the right breast are suggested at this time. Both breasts remain heterogeneously dense with otherwise stable mild asymmetry. IMPRESSION: BI-RADS 0: NEED ADDITIONAL IMAGING EVALUATION. FOCAL COMPRESSION MAMMOGRAPHY AND PROBABLY DIRECTED ULTRASOUND OF THE RIGHT BREAST ARE SUGGESTED. DENSITY: Heterogeneously dense. Board Certified Radiologists. Accredited by the ACR and FDA. MAMMOGRAPHY IS VERY IMPORTANT TO YOUR HEALTH. THE [employer] GUIDELINES RECOMMEND THAT WOMEN 40 YEARS OF AGE AND OLDER SHOULD HAVE A MAMMOGRAM EVERY YEAR. A REMINDER LETTER WILL BE SENT AT THE APPROPRIATE TIME. Interpreted by: Mart Montaño MD Signed by: Mart Montaño MD 04/04/21 Final result Normal [facility] HPV DNA Typingon 03-21-2021 HPV Type 16 Not detected Normal Not Detect [facility] HPV Type 18 Not detected Normal Not Detect [facility] HPVOH (Other types) Not detected Normal Not Detect [facility] Comment on above: Result Comment: *Inc ludes 31,33,35,39,45,51,52,56,58,59,66,68 genotypes Gynecological Specimen (Cyto logy)on 03-16-2021 Gynecological Specimen (Cytology) [facility] [address] [place] [address] FINAL CYTOLOGY PAP REPORT Patient Name: HANNA RAMIREZ Accession No: [id number] Age Sex: 1975 45 Y / F Location: [facility] Account No: [id number] Collected: 03/16/2021 Med Rec No: [id number] Received: 03/19/2021 Attend Phys: FARA BECKMAN Completed: 03/23/2021 Perform Phys: FARA BECKMAN SPECIMEN ADEQUACY: Satisfactory for Evaluation. Endocervical cells/transformatio n zone component present. GENERAL CATEGORIZATION: Negative for Intraepithelial Lesion or Malignancy Specimen: THINPREP LIQUID BASE IMAGED DIAGNOSTIC History: Source: Thin Prep Site: Cervical History: Previous abnormal smear? None given History of CA? None given Lab Order#: [id number] Test Name Collected D AND T Result HPV Type 16 03/16/2021 Not Detected HPV Type 18 03/16/2021 Not Detected HPVOH (Other types) 03/16/2021 Not Detected HPV Comment 03/16/2021 See below Test Comment: This is information only. See above for results. HPV other genotypes: 31,33,35,39,45,51,5 2,56,58,59,66,68 The Lance Ulisses HPV Test is a qualitative in-vitro test for the detection of Human Papillomavirus that provides specific genotyping information for HPV Types 16 and 18, while concurrently detecting 12 other high-risk HPV types 31,33,35, 39,45,51,52,56,58,5 9,66,68 in a pooled result. The test utilizes amplification of target DNA by Polymerase Chain Reaction (PCR) and nucleic acid hybridization. CPT: Technical: 59371 X1 Screened by: NURIS DANIEL(ASCP) NURIS DANIEL(ASCP) 03/23/2021 Electronically signed out by Cervical cytology is a screening test primarily for squamous cancers and precursors and has associated false negative and positive results. New technologies such as liquid based sampling may decrease but not eliminate all false negative results. Please refer to established guidelines All gynecologic cytology specimen processing and diagnostic testing is processed and screened using a Thin Prep Rubber Stamp Die Inspector at [facility] [address] [place] [address] All abnormal gynecologic interpretation is performed at [facility], unless otherwise noted in the report. Page 1 of 1 Invalid Interpretation Code [facility] Comment on above: Performed By: #### G YN #### [facility] [address] [place] [address] HPV DNA Typingon 03-16-2021 HPV Comment See below Normal [facility] Comment on above: Result Comment: Th is is information only. See above for results. HPV other genotypes: 31,33,35,39,45,51,52,56,58,59,66,68 The Lance Ulisses HPV Test is a qualitative in-vitro test for the detection of Human Papillomavirus that provides specific genotyping information for HPV Types 16 and 18, while concurrently detecting 12 other high-risk HPV types 31,33,35, 39,45,51,52,56,58,59,66,68 in a pooled result. The test utilizes amplification of target DNA by Polymerase Chain Reaction (PCR) and nucleic acid hybridization. . Vital Signs Date Time Vital Sign Value Performing Clinician Facility 06-17-2025 09:25-0400 Body height 160.02 cm Radha Cardozo MD Work Phone: [facility] 06-17-2025 09:25-0400 Body mass index (BMI) [Ratio] 24.7 kg/m2 Radha Cardozo MD Work Phone: [facility] 06-17-2025 09:25-0400 Body weight 63.5 kg Radha Cardozo MD Work Phone: [facility] 06-17-2025 09:25-0400 Diastolic blood pressure 99 mm[Hg] Radha Cardozo MD Work Phone: [facility] 06-17-2025 09:25-0400 Heart rate 65 /min Radha Cardozo MD Work Phone: [facility] 06-17-2025 09:25-0400 Systolic blood pressure 158 mm[Hg] Radha Cardozo MD Work Phone: [facility] 03-23-2025 09:28-0400 Body height 160.02 cm [facility] 03-23-2025 09:28-0400 Body mass index (BMI) [Ratio] 24.4 kg/m2 [facility] 03-23-2025 09:28-0400 Body weight 62.59 kg [facility] 03-23-2025 09:28-0400 Diastolic blood pressure 89 mm[Hg] [facility] 03-23-2025 09:28-0400 Heart rate 64 /min [facility] 03-23-2025 09:28-0400 Respiratory rate 12 /min [facility] 03-23-2025 09:28-0400 SaO2% (BldA) [Mass fraction] 98 % [facility] 03-23-2025 09:28-0400 Systolic blood pressure 142 mm[Hg] [facility] 02-21-2025 08:51-0400 Body height 160 cm Mona SOL Work Phone: [facility] 02-21-2025 08:51-0400 Body mass index (BMI) [Ratio] 24.45 kg/m2 Mona Hill PA Work Phone: [facility] 02-21-2025 08:51-0400 Body weight 62.6 kg Mona Snider PA Work Phone: [facility] 02-21-2025 08:51-0400 Diastolic blood pressure 82 mm[Hg] Mona Snider PA Work Phone: [facility] 02-21-2025 08:51-0400 Systolic blood pressure 120 mm[Hg] Mona Snider PA Work Phone: [facility] 12-24-2024 10:54-0500 Body height 160.02 cm Radha Cardozo MD Work Phone: [facility] 12-24-2024 10:54-0500 Body mass index (BMI) [Ratio] 24.6 kg/m2 Radha Cardozo MD Work Phone: [facility] 12-24-2024 10:54-0500 Body weight 63.04 kg Radha Cardozo MD Work Phone: [facility] 12-24-2024 10:54-0500 Diastolic blood pressure 87 mm[Hg] Radha Cardozo MD Work Phone: [facility] 12-24-2024 10:54-0500 Heart rate 81 /min Radha Cardozo MD Work Phone: [facility] 12-24-2024 10:54-0500 Systolic blood pressure 144 mm[Hg] Radha Cardozo MD Work Phone: [facility] 05-25-2024 11:25-0400 Body height 160.02 cm MD Radha Cardozo Work Phone: [facility] 05-25-2024 11:25-0400 Body mass index (BMI) [Ratio] 23.3 kg/m2 MD Radha Cardozo Work Phone: [facility] 05-25-2024 11:25-0400 Body weight 59.87 kg MD Radha Cardozo Work Phone: [facility] 05-25-2024 11:25-0400 Diastolic blood pressure 93 mm[Hg] MD Radha Cardozo Work Phone: [facility] 05-25-2024 11:25-0400 Heart rate 89 /min MD Radha Cardozo Work Phone: [facility] 05-25-2024 11:25-0400 Systolic blood pressure 131 mm[Hg] MD Radha Cardozo Work Phone: [facility] 02-16-2024 11:19-0400 Body height 160.02 cm [facility] 02-16-2024 11:19-0400 Body mass index (BMI) [Ratio] 23 kg/m2 [facility] 02-16-2024 11:19-0400 Body weight 58.96 kg [facility] 02-16-2024 11:19-0400 Diastolic blood pressure 98 mm[Hg] [facility] 02-16-2024 11:19-0400 Heart rate 67 /min [facility] 02-16-2024 11:19-0400 Systolic blood pressure 133 mm[Hg] [facility] 11-21-2023 09:00-0500 Body height 160.02 cm Radha Cardozo Other [facility] 11-21-2023 09:00-0500 Body mass index (BMI) [Ratio] 23.56 kg/m2 Radha Cardozo Other [facility] [employer] Other 11-21-2023 09:00-0500 Body weight 60.33 kg Radha Cardozo Other [facility] [employer] Other 11-21-2023 09:00-0500 Body weight 60.32 kg [facility] 11-21-2023 09:00-0500 Diastolic blood pressure 84 mm[Hg] Radha Cardozo Other [facility] 11-21-2023 09:00-0500 Systolic blood pressure 138 mm[Hg] Radha Cardozo Other [facility] 07-30-2023 08:30-0400 Body height 160.02 cm Radha Cardozo Other [employer] Other 07-30-2023 08:30-0400 Body mass index (BMI) [Ratio] 23.38 kg/m2 Radha Cardozo Other [employer] Other 07-30-2023 08:30-0400 Body weight 59.88 kg Radha Cardozo Other [employer] Other 07-30-2023 08:30-0400 Diastolic blood pressure 83 mm[Hg] Radha Cardozo Other [employer] Other 07-30-2023 08:30-0400 Systolic blood pressure 134 mm[Hg] Radha Cardozo Other [employer] Other 12-13-2022 10:45-0500 Body height 160.02 cm Radha Cardozo Other [employer] Other 12-13-2022 10:45-0500 Body mass index (BMI) [Ratio] 23.38 kg/m2 Radha Cardozo Other [employer] Other 12-13-2022 10:45-0500 Body weight 59.88 kg Radha Cardozo Other [employer] Other 12-13-2022 10:45-0500 Diastolic blood pressure 86 mm[Hg] Radha Cardozo Other [employer] Other 12-13-2022 10:45-0500 SaO2% (BldA) [Mass fraction] 99 % Radha Cardozo Other [employer] Other 12-13-2022 10:45-0500 Systolic blood pressure 132 mm[Hg] Radha Cardozo Other [facility] [employer] Other Encounters Encounter Date Encounter Type Care Provider Facility Start: 06-17-2025 End: 06-17-2025 ambulatory Radha Cardozo MD Work Phone: [facility] Work Phone: Start: 06-17-2025 End: 06-17-2025 Patient encounter procedure Radha Cardozo MD [facility] Work Phone: Start: 06-17-2025 End: 06-17-2025 Patient encounter status Radha Cardozo MD [facility] Start: 03-23-2025 End: 03-23-2025 ambulatory [facility] Work Phone: Start: 03-23-2025 End: 03-23-2025 Patient encounter procedure [facility] Work Phone: Start: 02-21-2025 End: 02-21-2025 Bamboo flowsheet Mona SOL Work Phone: [facility] Start: 02-21-2025 End: 02-21-2025 Bamboo Vello Systemsheet Mona OSL Work Phone: [facility] Start: 02-21-2025 End: 02-21-2025 Office outpatient visit 15 minutes Mona SOL Work Phone: [facility] Comment on above: Migraine without aur a and without status migrainosus, not intractable (CMS/HCC) (Primary Dx); Chiari malformation type I (CMS/HCC) Start: 02-21-2025 End: 02-21-2025 ambulatory MONA SNIDER Not Available Start: 12-24-2024 End: 12-24-2024 ambulatory Radha Cardozo MD Work Phone: [facility] Work Phone: Start: 12-24-2024 End: 12-24-2024 Patient encounter procedure Radha Cardozo MD Work Phone: [facility] Work Phone: Start: 12-20-2024 End: 12-20-2024 ambulatory Radha Cardozo MD Work Phone: [facility] Work Phone: Start: 12-20-2024 End: 12-20-2024 Patient encounter procedure Radha Cardozo MD Work Phone: [facility] Work Phone: Start: 08-23-2024 End: 08-23-2024 Refill Dahiana Murrieta RETAIL CLERK Work Phone: [facility] Comment on above: Migraine, unspecifie d, not intractable, without status migrainosus (CMS/HCC) Start: 08-02-2024 End: 08-02-2024 ambulatory [facility] Work Phone: Start: 08-02-2024 End: 08-02-2024 Patient encounter procedure [facility] Work Phone: Start: 05-25-2024 End: 05-25-2024 ambulatory MD Radha Cardozo Work Phone: [facility] Work Phone: Start: 05-25-2024 End: 05-25-2024 Patient encounter procedure MD Radha Cardozo Work Phone: [facility] Work Phone: Start: 04-19-2024 End: 04-19-2024 ambulatory MD Radha Cardozo Work Phone: [facility] Work Phone: Start: 04-19-2024 End: 04-19-2024 Patient encounter procedure MD Radha Cardozo Work Phone: [facility] Work Phone: Start: 03-23-2024 End: 03-23-2024 ambulatory MD Radha Cardozo Work Phone: [facility] Work Phone: Start: 03-23-2024 End: 03-23-2024 Patient encounter procedure MD Radha Cardozo Work Phone: [facility] Work Phone: Start: 02-16-2024 End: 02-16-2024 ambulatory [facility] Work Phone: Start: 02-16-2024 End: 02-16-2024 Patient encounter procedure [facility] Work Phone: Start: 02-12-2024 Non-patient / Non-visit [facility] Work Phone: Start: 11-21-2023 End: 11-21-2023 ambulatory Radha Cardozo Other [employer] Other Start: 11-21-2023 Office outpatient vi sit 15 minutes Radha Cardozo [facility] Start: 11-21-2023 End: 11-21-2023 Patient encounter procedure [facility]- Start: 10-25-2023 End: 10-25-2023 ambulatory Radha Cardozo Other [employer] Other Start: 10-25-2023 Telephone encounter Radha Cardozo [facility] Start: 09-23-2023 End: 09-23-2023 ambulatory Radha Cardozo Other [employer] Other Start: 09-23-2023 Telephone encounter Radha Cardozo [facility] Start: 08-27-2023 End: 08-27-2023 ambulatory Radha Cardozo Other [employer] Other Start: 08-27-2023 Telephone encounter Radha Cardozo [facility] Start: 07-30-2023 End: 07-30-2023 ambulatory Radha Cardozo Other [employer] Other Start: 07-30-2023 Office outpatient vi sit 15 minutes Radha Cardozo [facility] Start: 07-03-2023 End: 07-03-2023 ambulatory Radha Cardozo Other [employer] Other Start: 07-03-2023 Telephone encounter Radha Cardozo [facility] Start: 03-05-2023 End: 03-05-2023 ambulatory Radha Cardozo Other [employer] Other Start: 03-05-2023 Telephone encounter Radha Cardozo [facility] Start: 02-06-2023 End: 02-06-2023 ambulatory Radha Cardozo Other [employer] Other Start: 02-06-2023 Telephone encounter Radha Cardozo [facility] Start: 12-30-2022 End: 12-30-2022 ambulatory Radha Cardozo Other [employer] Other Start: 12-30-2022 Telephone encounter Radha Cardozo [facility] Start: 12-27-2022 End: 12-28-[address] RADHA CARDOZO Facility: Start: 12-13-2022 End: 12-13-2022 ambulatory Radha Cardozo Other [employer] Other Start: 12-13-2022 Office outpatient vi sit 15 minutes Radha Cardozo [facility] Start: 07-30-2022 Adult health examination Jessica Cardozo Other [employer] Other Start: 04-05-2021 End: 04-08-2021 ambulatory [facility] Start: 04-05-2021 End: 04-07-2021 Subsequent hospital visit by physician [facility] Comment on above: Abnormal mammogram Abnormal mammogram o f right breast Start: 03-29-2021 End: 04-01-[address] [facility] Start: 03-29-2021 End: 03-31-2021 Subsequent hospital visit by physician Basim Mammo Room [address] [facility] [place] Comment on above: Encounter for screen ing mammogram for breast cancer Procedures Date Procedure Procedure Detail Performing Clinician Start: 12-20-2024 Plain X-ray of left hip Radha Cardozo MD Work Phone: Start: 12-20-2024 X-ray of cervical spine Radha Cardozo MD Work Phone: Start: 12-20-2024 X-ray of lumbar spin e, four views Radha Cardozo MD Work Phone: Start: 03-23-2024 Radiography of thora cic spine MD Radha Cardozo Work Phone: Start: 04-05-2021 Us breast uni real t wagner with image limited Fara Beckman DO Work Phone: Start: 04-05-2021 Diagnostic mammograp hy computer-aided detcj uni Fara Beckman DO Work Phone: Plan of Treatment Date Care Activity Detail Author Start: 03-16-2026 Screening for malign ant neoplasm of cervix Cervical cancer screen [facility] Work Phone: Start: 02-27-2026 End: 02-27-2026 Patient encounter procedure 02/27/2026 8:20 AM EDT Office Visit [facility] [address] [phone] Apurva Velasquez NP [address] [place] [phone] [facility] Start: 02-21-2025 End: 02-21-2025 Patient encounter procedure 02/21/2025 9:00 AM EDT Office Visit [facility] [address] [facility] [address] [place] [phone] Mona Snider PA [address] [place], [place] [id number] Arrived [facility] Comment on above: Arrived Start: 12-27-2024 End: 12-27-2024 Patient encounter procedure 12/27/2024 8:20 AM EST Office Visit [facility] [address] [place] [phone] Mona Snider PA [address] [address] [place] [address] [facility] Start: 12-20-2024 Plain X-ray of left hip XR hip LT min 2V(w/wo pelvis)* [facility] Start: 12-20-2024 X-ray of cervical spine XR cer v spine AP/LAT/FLX/EXT [facility] Start: 12-20-2024 X-ray of lumbar spin e, four views XR lumbar spine AP/LAT/FLX/EXT [facility] Start: 12-20-2024 XR Cervical spine 4 Views [facility] Start: 12-20-2024 XR Hip - left 2 Views F [facility] Start: 12-20-2024 XR Lumbar spine 4 Views [facility] Start: 03-23-2024 Radiography of thora cic spine XR thoracic spine 2V [facility] Start: 03-23-2024 XR Thoracic spine 2 Views [facility] Start: 02-16-2024 Patient referral [facility] Work Phone: Start: 06-27-2021 Influenza vaccination Flu vacc ine (Season Ended) [facility] Work Phone: Start: 2017 Lipid panel Lipid screen [facility] Work Phone: Start: 1996 DTaP/Tdap/Td vaccine (1 - Tdap) DTaP/Tdap/Td vaccine (1 - Tdap) [facility] Work Phone: Start: 1992 HIV screening HIV screen [facility] Work Phone: Start: 1989 COVID-19 Vaccine (1) COVID-19 Vaccin e (1) [facility] Work Phone: Start: 1977 Hepatitis C screening Hepatitis C [facility] Work Phone: End: 03-29-2021 EULOGIO JED DIGITAL SCREEN BILATERAL EULOGIO JED DIGITAL SCREEN BILATERAL Imaging Routine Encounter for screening mammogram for breast cancer 1 Occurrences starting 03/29/2021 until 03/29/2021 [facility] Work Phone: Comment on above: 1 Occurrences starti ng 03/29/2021 until 03/29/2021 EULOGIO JED DIGITAL SCR EEN BILATERAL EULOGIO JED DIGITAL SCREEN BILATERAL Imaging Routine Encounter for screening mammogram for breast cancer 03/29/2021 1:38 PM EDT [facility] Work Phone: MG Breast - bilatera l Screening [facility] MG Breast - bilatera l Screening [facility] Patient Education Low back pain in adults [facility] Work Phone: Patient referral [facility] Work Phone: XR Thoracic spine 2 Views [facility] Payers Date Payer Category Payer Self-pay [id number] 2022 Private Health Insurance [employer] [id number] 1977 Unknown [id number] 1977 Unknown [id number] 1977 Unknown [id number] 1977 Unknown [id number] 1977 Unknown [id number] 1959 Unknown [id number] Unknown [id number] Unknown 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) [facility] Phone: Start: 1975 Sex Assigned At Not on file [facility] Phone: Exposure to SARS-CoV-2 (event) Not sure [facility] Start: 02-21-2025 Sex Assigned At [facility] Other Start: 02-12-2024 End: 12-20-2024 Tobacco smoking status [facility] Ex-smoker (finding) [facility] Start: 1975 Sex Assigned At Female [facility] Tobacco smoking status [facility] Tobacco smoking consumption unknown [facility] Start: 12-20-2024 End: 03-23-2025 Sex Female (finding) [facility] History of tobacco use Current smoker [facility] History of tobacco use Cigarette Smoker [facility] Start: 02-21-2025 Alcoholic beverage intake Lifetime non-drinker (finding) [facility] Start: 02-21-2025 History of Social function [facility] NEGATED: Highlighted row N [facility] Clinical Notes 12-13-2022 to 03-23-2025 Note Date & Type Note Facility 03-23-2025 Evaluation note Diagnosis Onset Date Resolution Chronic migraine with aura acute March 23, 2025 9 :16am Chronic thoracic back pain acute March 23, 2025 9 :16am Trochanteric bursitis of left hip acute March 23, 2025 9 :16am Chronic migraine with aura acute June 17 9:21am Chronic thoracic back pain acute June 17 9:21am Screening mammogram for breast cancer acute June 17 9:21am Trochanteric bursitis of left hip acute June 17 9:21am Wellness examination acute 2024 9:21am [facility] Work Phone: 1(735) 736-982204-28-2025 History of Present illness Narrative* SWETA Draper - 02/21/2025 9:00 AM EDT Images from the original note were not included. Subjective Hanna Ramirez is a 49 y.o. year old female Chief Complaint Patient presents with Headache Past Medical History: Diagnosis Date Headache History reviewed. No pertinent surgical history. Family History Problem Relation Name Age of Onset Heart disease Father Social History Tobacco Use Smoking status: Former Types: Cigarettes Smokeless tobacco: Never Substance Use Topics Alcohol use: Never Medication Documentation Review Audit Reviewed by Shayy Hauser MA (Combatant Diver Officer) on 02/21/25 at 0854 Medication Order Taking? Sig Documenting Provider Last Dose Status tiZANidine (Zanaflex) 4 MG tablet [id number] 1/2-1 PO at bedtime Dahiana Murrieta, ADRIANO Active ZOLMitriptan (Zomig) 5 MG nasal solution [id number] PLEASE SEE ATTACHED FOR DETAILED DIRECTIONS SWETA Draper Active HPI HPI Headaches -on Zanaflex. PCP took this over -some months better than others -states that she can go weeks without a headache and then have a week with multiple headaches -states they are not as severe -Zomig abort well and fast for her -headaches last 1/2 -1 hour after taking Zomig -admits light and sound sensitivity -occassional nausea and vomiting -denies any vision changes -sleeps ok at night -averages 6 hours a night -does not always wake feeling rested ROS Review of Systems Constitutional: Negative for fatigue and unexpected weight change. HENT: Negative for trouble swallowing and voice change. Eyes: Negative for photophobia and visual disturbance. Gastrointestinal: Negative for rectal pain and vomiting. Musculoskeletal: Negative for back pain, joint swelling and neck stiffness. Neurological: Positive for headaches. Negative for syncope and weakness. Psychiatric/Behavioral: Negative for dysphoric mood, sleep disturbance and suicidal ideas. Objective Visit Vitals BP 120/82 (BP Location: Left arm, Patient Position: Sitting) Ht 5' 3 Wt 138 lb BMI 24.45 kg/m Smoking Status Former BSA 1.67 m Neurological Exam Mental Status Awake, alert and oriented to person, place and time. Recent and remote memory are intact. Speech isnormal. Language is fluent with no aphasia. Attention and concentration are normal. Fund of knowledge is appropriate for level of education. Cranial Nerves CN II: Visual acuity is normal. Visual arana full to confrontation. CN III, IV, : Extraocular movements intact bilaterally. Normal lids and orbits bilaterally. Pupils equal round and reactive to light bilaterally. CN V: Facial sensation is normal. CN VII: Full and symmetric facial movement. CN VIII: Hearing is normal. CN IX, X: Palate elevates symmetrically CN XI: Shoulder shrug strength is normal. CN XII: Tongue midline without atrophy or fasciculations. Motor Normal muscle bulk throughout. Normal muscle tone. No abnormal involuntary movements. Sensory Light touch is normal in upper and lower extremities. Gait Casual gait is normal including stance, stride, and arm swing. Motor Examination RUE Strength deltoid, biceps, triceps, wrist extensors, wrist extensors, wrist flexor, powerhouse mechanic strength 5/5. LUE Strength deltoid, biceps, triceps, wrist extensors, wrist extensors, wrist flexor, powerhouse mechanic strength 5/5. RLE Strength illopsoas, quadriceps, tibialis anterior, and gastrocnemius strength 5/5. LLE Strength illopsoas, quadriceps, tibialis anterior, and gastrocnemius strength 5/5. Tone Normal tone x4 extremities. Reflexes: RUE biceps reflex 2, brachioradialis reflex 2 LUE biceps reflex 2, brachioradialis reflex 2 RLE knee reflex 2 LLE knee reflex 2, Heart: Regular rate and rhythm Assessment and Plan Diagnoses and all orders for this visit: Migraine without aura and without status migrainosus, not intractable (CMS/HCC) Chiari malformation type I (CMS/HCC) The patient is a 49 year old female who presents with headaches that occurs a couple of times a week that can last for days at a time associated with photophobia, phonophobia, nausea, and neck pain Most consistent with migraine without aura. The patient may have a component of rebound headaches dueto increased use of Percocet. The patient does have some signs and symptoms of a sleep disorder andmay have increasing headaches related to an underlying sleep disorder. She feels her sleep has improved some with the zanaflex. 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 I do not feel this is contributing to the patient's current symptoms. In addition the patient had nonspecific white matter changes likely secondary to chronic migraine headache. She has done well with zanaflex and has about 4 migraines a month that are easily aborted with Zomig. PLAN 1. Continue Zomig for abortive therapy for severe headaches 2. Continue Zanaflex 4 mg 1/2-1 po qhs for muscle spasm (PCP is prescribing) 3. Patient can follow up with this clinic in 6-12 months or sooner for new or worsening symptoms [id number] Evaluation note* Diagnosis Onset Date Resolution Status Admit Date Chronic pain acute November 8:06am Chronic thoracic back pain acute December 20, 2024 8:06am Muscle pain acute November 8:06am Other spondylosis with radiculopathy, cervical region acute F ebruary 2024 8:06am Sacroiliitis, not elsewhere classified acute December 20 025 8:06am Trochanteric bursitis of lef t hip acute December 20 025 8:06am [facility] Work Phone: 1(354) 351-972001-26-2024 Evaluation note* Encounter Date Diagnosis Assessment Notes Treatment Notes Treatment Clinical Notes Oct, Back pain, thoracic (ICD-10 - M54.6) Reviewed OARRS. Handwrote Percocet #90 and Tramadol #90. Chronic condition and stable. Oct, Chronic migraine with aura (ICD-10 - G43.109) Improved, Continue followup w [facility]. [facility] Other 12-30-2023 Evaluation note* Encounter Date Diagnosis Assessment Notes Treatment Notes Treatment Clinical Notes Sep, Back pain, thoracic (ICD-10 - M54.6) [facility] Other 11-28-2023 Evaluation note* Encounter Date Diagnosis Assessment Notes Treatment Notes Treatment Clinical Notes Aug, Back pain, thoracic (ICD-10 - M54.6) [facility] Other 11-01-2023 Evaluation note* Encounter Date Diagnosis Assessment Notes Treatment Notes Treatment Clinical Notes Aug, Back pain, thoracic (ICD-10 - M54.6) [facility] Other 10-04-2023 Evaluation note* Encounter Date Diagnosis Assessment Notes Treatment Notes Treatment Clinical Notes Jul, Back pain, thoracic (ICD-10 - M54.6) Reviewed OARRS report. Followup q 3 months. Continue present meds prn. Jul, Screening mammogram for breast cancer (ICD-10 - Z12.31) Jul, Chronic migraine with aura (ICD-10 - G43.109) Improved, continue 6 month followup with [facility]. [facility] Other 09-07-2023 Evaluation note* Encounter Date Diagnosis Assessment Notes Treatment Notes Treatment Clinical Notes Jun, Back pain, thoracic (ICD-10 - M54.6) [facility] Other 05-10-2023 Evaluation note* Encounter Date Diagnosis Assessment Notes Treatment Notes Treatment Clinical Notes February, Back pain, thoracic (ICD-10 - M54.6) [facility] Other 04-13-2023 Evaluation note* Encounter Date Diagnosis Assessment Notes Treatment Notes Treatment Clinical Notes Jan, Back pain, thoracic (ICD-10 - M54.6) [facility] Other 03-06-2023 Evaluation note* Encounter Date Diagnosis Assessment Notes Treatment Notes Treatment Clinical Notes Dec, Frequent headaches (ICD-10 - R51.9) Dec, Abnormal brain MRI (ICD-10 - R90.89) [facility] Other 02-17-2023 Evaluation note* Encounter Date Diagnosis Assessment Notes Treatment Notes Treatment Clinical Notes Nov, Headache, worsening (ICD-10 - R51.9) Nov, Chronic migraine with aura (ICD-10 - G43.109) Nov, Back pain, thoracic (ICD-10 - M54.6) [facility] Other Evaluation note* Diagnosis Encounter for screening mammogram for breast cancer documented in this encounter [facility] Phone: [email or web address] note* Diagnosis Abnormal mammogram Abnormal mammogram, unspecified documented in this encounter [facility] Phone: [email or web address] note* Diagnosis Abnormal mammogram of right breast documented in this encounter [facility] Phone: [email or web address] note* Diagnosis Onset Date Resolution Status Chronic thoracic back pain a cute Screening mammogram for breast cancer acute [facility] Work Phone: Evaluation note* Diagnosis Onset Date Resolution Status Chronic thoracic back pain a cute Screening mammogram for breast cancer acute Chronic pain acute Chronic thoracic back pain a cute Muscle pain acute [facility] Work Phone: Evaluation note* Diagnosis Onset Date Resolution Status Chronic thoracic back pain a cute Screening mammogram for breast cancer acute Chronic pain acute Chronic thoracic back pain a cute Muscle pain acute Chronic pain acute Chronic thoracic back pain a cute Muscle pain acute [facility] Work Phone: Evaluation note* Diagnosis Onset Date Resolution Status Chronic pain acute Chronic thoracic back pain a cute Muscle pain acute Chronic pain acute Chronic thoracic back pain a cute Muscle pain acute [facility] Work Phone: Evaluation note* Diagnosis Onset Date Resolution Status Chronic thoracic back pain a cute Chronic pain acute Chronic thoracic back pain a cute Muscle pain acute [facility] Work Phone: Evaluation note* Diagnosis Migraine, unspecified, not intractable, without status migrainosus (CMS/HCC) documented in this encounter [facility] HealthcareEvaluation note* Diagnosis Onset Date Resolution Status Admit Date Chronic pain acute November 8:06am Chronic thoracic back pain acute December 20, 2024 8:06am Muscle pain acute November 8:06am Other spondylosis with radiculopathy, cervical region acute F ebruary 2024 8:06am Sacroiliitis, not elsewhere classified acute December 20, 2 025 8:06am Trochanteric bursitis of lef t hip acute December 20, 025 8:06am [facility] Work Phone: Evaluation note* Diagnosis Migraine without aura and without status migrainosus, not intractable (CMS/HCC)- Primary Chiari malformation type I (CMS/HCC) Compression of brain documented in this encounter [facility] HealthcareEvaluation noteNo assessment information available[facility] Work Phone: History general Narrative - Reported* Type Description Date Medical History Pain of left foot Medical History Other chronic pain Medical History Left knee pain Medical History Myopia of both eyes Medical History Back pain, thoracic Medical History Chronic migraine with aura Medical History Anemia Surgical History eye lid Hospitalization History SEE SURGICAL HX [facility] Other Reason for referral (narrative)No reason for referral [facility] available[facility] Work Phone: Summary Purpose Family History Relationship Condition Age at Onset Recorded Date/T wagner Not Specified Hypertension Unknown Heart disease Unknown Relationship Condition Age at Onset Recorded Date/T wagner mother Hypertension Unknown Heart disease Unknown Advance Directives Documents on File Type Date Recorded Patient Acid Bath Mixer Expl anation ACP-Advance Directive ACP-Power of Wrapper Sheeter Advance Directive Response Recorded Date/ Time Advance Directives No September 5:28pm Advance Directive Response Recorded Date/ Time Advance Directives No September 4:28pm Advance Directive Response Recorded Date/ Time Advance Directives No February 24th , 2025 2:16pm Advance Directive Response Recorded Date/ Time Advance Directives No November 3:16pm Reason for Referral Status Reason Specialty Diagnoses / Procedures Referre d By Contact Referred To Contact Open Radiology Diagnoses Abnormal mammogram Procedures US BREAST LIMITED RIGHT Fara Beckman, DO [address] [place] [address] Reason 01/01/23 MRI, last OV note. Diagnosis 1 Frequent headaches ( R51.9) Referral Organization [facility] hollie Referring Provider First Name Radha Referring Provider Last Name Juliane Referring Provider Specialty Family Medi cine Referred Organization [facility] Referred Provider Cole Mireles Referred Address [address],[place], [place],[address] Referred Provider Specialty Neurology Referral Priority Routine Referral Appointment Date 2023-01-01 General Notes Judy Norris 01:00:46 PM >received today, attachments made, form filled out, referral faxed Judy Norris 01/06/2023 10:29:54 AM >faxed first attempt letter Judy Norris 01/09/2023 09:47:38 AM >RECEIVED NOTES AND SENT TO DR. CARDOZO FOR REVIEW. CLOSING REFERRAL Chief Complaint and Reason for Visit Chief Complaint 3 Month Follow Up Amb Documentation Medication follow up Reason for Visit Chronic thoracic aditya k pain Screening mammogram for breast cancer Chief Complaint Amb Documentation Medication follow up RETAIL CLERK REFF BY DR. RADHA CARDOZO M54.6 - Pain in thoracic spine Reason for Visit Chronic thoracic aditya k pain Screening mammogram for breast cancer Chronic pain Chronic thoracic back pain Muscle pain Chief Complaint Amb Documentation Medication follow up RETAIL CLERK REFF BY DR. RADHA CARDOZO M54.6 - Pain in thoracic spine 3-4 WEEK RECHECK Reason for Visit Chronic thoracic aditya k pain Screening mammogram for breast cancer Chronic pain Chronic thoracic back pain Muscle pain Chronic pain Chronic thoracic back pain Muscle pain Chief Complaint RETAIL CLERK REFF BY DR. JESSICA CARDOZO M54.6 - Pain in thoracic spine 3-4 WEEK RECHECK 3 month f/u Reason for Visit Chronic pain Chronic thoracic back pain Muscle pain Chronic pain Chronic thoracic back pain Muscle pain Chief Complaint 3 month f/u 3-4 MONTHS Reason for Visit Chronic thoracic aditya k pain Chronic pain Chronic thoracic back pain Muscle pain Chief Complaint Admit Date 4 MONTHS December 20, 2024 8:06am G89.29 - Other chronic pain M46.1 - Sacr oiliitis, December 20, 2024 8:30am Reason for Visit Admit Date Chronic pain December 20, 2024 8:06am Chronic thoracic back pain November 8:06am Muscle pain December 20, 2024 8:06am Other spondylosis with radiculopathy, ce rvical region December 20, 2024 8:06am Sacroiliitis, not elsewhere classified F ebruary 2024 8:06am Trochanteric bursitis of left hip Februa ry 2024 8:06am Chief Complaint Admit Date 4 MONTHS December 20, 2024 8:06am G89.29 - Other chronic pain M46.1 - Sacr oiliitis, December 20, 2024 8:30am 3month f/u December 24, 2024 10:46am Chief Complaint Admit Date medication follow up March 23, 2025 9:16 am Chief Complaint Admit Date medication follow up March 23, 2025 9:16 am Med Refill June 17, 2025 9: 21am Reason for Visit Admit Date Chronic migraine with aura March 23 9:16am Chronic thoracic back pain March 23 9:16am Trochanteric bursitis of left hip March 232024 9:16am Chronic migraine with aura June 17, 2025 9:21am Chronic thoracic back pain June 17, 2025 9:21am Screening mammogram for breast cancer [facility] 2024 9:21am Trochanteric bursitis of left hip June 17, 2025 9:21am Wellness examination June 17, 2025 9 :21am Additional Source Comments INFORMATION SOURCE (unrecogn ized section and content) DATE CREATED AUTHOR 03/26/2021 [facility] DATE CREATED AUTHOR AUTHOR'S ORGANIZ ATION 04/08/2021 [facility] DATE CREATED AUTHOR AUTHOR'S ORGANIZ ATION 12/31/2022 [facility] DATE CREATED AUTHOR AUTHOR'S ORGANIZ ATION 12/21/2024 [facility] DATE CREATED AUTHOR AUTHOR'S ORGANIZ ATION 02/21/2025 [facility] EPIC Reason for Visit (unrecogniz ed section and content) Status Reason Specialty Diagnoses / Procedures Referre d By Contact Referred To Contact Closed Radiology Diagnoses Encounter for screening mammogram for breast cancer Procedures EULOGIO JED DIGITAL SCREEN BILATERAL EULOGIO DIGITAL SCREEN W OR WO CAD BILATERAL Porter, Fara Mckeon, DO [address] [place] [address] Status Reason Specialty Diagnoses / Procedures Referre d By Contact Referred To Contact Open Radiology Diagnoses Abnormal mammogram Procedures US BREAST LIMITED RIGHT PorterFara, DO [address] [place] [address] Status Reason Specialty Diagnoses / Procedures Referre d By Contact Referred To Contact Closed Radiology Diagnoses Abnormal mammogram of right breast Procedures EULOGIO JED DIGITAL DIAGNOSTIC UNILATERAL RIGHT EULOGIO DIGITAL DIAGNOSTIC W OR WO CAD RIGHT Fara Beckman, DO [address] [place] [address] Reason Comments Med Refill Reason Comments Headache Care Teams (unrecognized sec tion and content) Team Status: Active Member Role Status Dates Radha Cardozo MD Primary Care Provider Active Team Status: Inactive Member Role Status Dates Radha Cardozo MD Primary Care Provide r, Referring Provider Active Start: March 23, 2024 End: March 23, 2024 Reyes Love MD Attending Provider Active Sta rt: March 23, 2024 End: March 23, 2024 Team Status: Inactive Member Role Status Dates Radha Cardozo MD Primary Care Provider Active Start: March 23, 2024 End: March 23, 2024 Reyes Love MD Attending Provider Active Sta rt: March 23, 2024 End: March 23, 2024 Team Status: Inactive Member Role Status Dates Radha Cardozo MD Primary Care Provider Active Start: April 19, 2024 End: April 19, 2024 Reyes Love MD Attending Provider Active Sta rt: April 19, 2024 End: April 19, 2024 Team Status: Inactive Member Role Status Dates Radha Cardozo MD Primary Care Provide r, Attending Provider Active Start: May 25, 2024 End: May 25, 2024 Team Status: Active Member Role Status Dates Radha Cardozo MD Primary Care Provider Active Start: February 12, 2024 GENEVIEVE Juarez Attending Provider Active Start : February 12, 2024 Team Status: Inactive Member Role Status Dates Radha Cardozo MD Primary Care Provide r, Attending Provider Active Start: February 16, 2024 End: February 16, 2024 Team Status: Active Member Role Status Dates Radha Cardozo MD Primary Care Provider Active Start: March 23, 2024 Reyes Love MD Attending Provider Active Sta rt: March 23, 2024 Team Status: Inactive Member Role Status Dates Radha Cardozo MD Attending Provider Active St art: November 21, 2023 End: November 21, 2023 Team Status: Inactive Member Role Status Dates Radha Cardozo MD Primary Care Provider Active Start: August 02, 2024 End: August 02, 2024 Reyes Love MD Attending Provider Active Sta rt: August 02, 2024 End: August 02, 2024 Engineering Technical Writer Relationship Specialty Start Date End Date Radha Cardozo MD [address] [place] [address] PCP - General Family Medicine 10/27/23 Mart Stanley MD [address] [place] [address] Referring Physician Neurology 10/27/23 Team Status: Inactive Member Role Status Dates Radha Cardozo MD Primary Care Provider Active Start: December 20, 2024 End: December 20, 2024 Reyes Love MD Attending Provider Active Sta rt: December 20, 2024 End: December 20, 2024 Team Status: Active Member Role Status Dates Radha Cardozo MD Primary Care Provider Active Start: December 20, 2024 Reyes Love MD Attending Provider Active Sta rt: December 20, 2024 Team Status: Inactive Member Role Status Dates Radha Cardozo MD Primary Care Provide r, Attending Provider Active Start: December 24, 2024 End: December 24, 2024 Engineering Technical Writer Relationship Specialty Start Date End Date Radha Cardozo MD [address] [facility] [place] [address] PCP - General Family Medicine 02/21/25 Engineering Technical Writer Relationship Specialty Start Date End Date Radha Cardozo MD [address] [place] [address] [id number] PCP - General Family Medicine 02/21/25 Team Status: Inactive Member Role Status Dates Radha Cardozo MD Primary Care Provide r, Attending Provider Active Start: March 23, 2025 End: March 23, 2025 Team Status: Inactive Member Role Status Dates Radha Cardozo MD Primary Care Provider Active Start: March 23, 2025 End: March 23, 2025 Radha Cardozo MD Attending Provider Active St art: March 23, 2025 End: March 23, 2025 Team Status: Inactive Member Role Status Dates Radha Cardozo MD Primary Care Provider Active Start: June 17, 2025 End: June 17, 2025 Radha Cardozo MD Attending Provider Active St art: June 17, 2025 End: June 17, 2025 Goals (unrecognized section and content) Goals may be documented in a n alternate section FOR RECORDS PERTAINING TO PATIENTS WHO ARE OR HAVE BEEN ENROLLED IN A CHEMICAL DEPENDENCY/SUBSTANCEABUSE PROGRAM, SOME INFORMATION MAY BE OMITTED. This clinical summary was aggregated from multiple sources. Caution should be exercised in using it in the provision of clinical care. This summary normalizes information from multiple sources, and as a consequence, information in this document may materially change the coding, format and clinical context of patient data. In addition, data may be omitted in some cases. CLINICAL DECISIONS SHOULD BE BASED ON THE PRIMARY CLINICAL RECORDS. [employer] [facility]. provides no warranty or guarantee of the accuracy or completeness of information in this document.
--- OUTSIDE RECORDS SUMMARY | 2025-07-11 07:34 | XMS_ITS | Clinical Summary ---
Author Organization [facility] Address [address] [place] [address] Care Team Providers Care Hydrogen Power Plant Engineer Name Role Phone Radha Brian MD Primary Care Provider [phone] Allergies Active Allergy Reactions Criticality Noted Date Comments Terbinafine Hives 03/16/2021 Medications tiZANidine (Zanaflex) 4 MG tabletIndication s:Muscle spasm 1/2-1 PO at bedtime 30 tablet 5 4 Active ZOLMitriptan (Zomig) 5 MG nasal solutionIndicati ons:Migraine, unspecified, not intractable, without status migrainosus PLEASE SEE ATTACHED FOR DETAILED DIRECTIONS 6 each 3 5 Active Family History Medical History Relation Name Comments Heart disease Father Relation Name Status Comments Father Alive Mother Alive Social History Tobacco Use Types Packs/Day Years Used Date Smoking Tobacco: Former Cigarettes Smokeless Tobacco: Never Tobacco Cessation:Counseling Given: Not Answered Alcohol Use Standard Drinks/Week Comments Never 0 (1 standard drink = 0.6 oz pur e alcohol) Comments Unknown Sex and Gender Information Value Date Recorded Sex Assigned at Not on file Legal Sex Female 6:47 PM EDT Gender Identity Not on file Sexual Orientation Not on file Last Filed Vital Signs Vital Sign Reading Time Taken Comments Blood Pressure 120/82 02/21/2025 8:51 AM EDT Pulse - - Temperature - - Respiratory Rate - - Oxygen Saturation - - Inhaled Oxygen Concentration - - Weight 62.6 kg (138 lb) 02/21/2025 8:51 AM EDT Height 160 cm (5' 3 ) 02/21/2025 8:51 AM EDT Body Mass Index 24.45 02/21/2025 8:51 AM EDT Plan of Treatment Not on file Insurance [employer] Care Teams Hydrogen Power Plant Engineer Relationship Specialty Start Date End Date Radha Brian MD [address] [place] [phone] PCP - General Family Medicine 02/21/25
--- OUTSIDE RECORDS SUMMARY | 2025-07-11 07:34 | XMS_ITS | Encounter Summary ---
Author Organization [facility] Address [address] [facility] [place] [address] Care Team Providers Care Bobcat Operator Name Role Phone Radha Brian MD Primary Care Provider [phone] Mart Stanley MD Unavailable [phone] Radha Brian MD Primary Care Provider [phone] Reason for Visit * Reason Comments Med Refill Encounter Details Date Type Department Care Team (Late st Contact Info) Description 02/11/2024 Refill [facility] [address] [place] [phone] Dahiana Murrieta NP Muscle spasm Social History Tobacco Use Types Packs/Day Years Used Date Smoking Tobacco: Never Assessed Comments Unknown Sex and Gender Information Value Date Recorded Sex Assigned at Not on file Legal Sex Female 6:47 PM EDT Gender Identity Not on file Sexual Orientation Not on file documented as of this encounter Plan of Treatment Not on file documented as of this encounter Visit Diagnoses Diagnosis Muscle spasm Spasm of muscle documented in this encounter Care Teams Bobcat Operator Relationship Specialty Start Date End Date Radha Brian MD PCP - General Family Medicine 10/27/23 02/17/25 Radha Brian MD [address] [place] [phone] PCP - General Family Medicine 02/21/25 Mart Stanley MD Referring Physician Neurology 10/27/23 02/17/25 documented as of this encounter
--- OUTSIDE RECORDS SUMMARY | 2025-07-11 07:34 | XMS_ITS | Clinical Summary ---
Author Organization [facility] Address [address] [place] [address] Care Team Providers Care Application Design Engineer Name Role Phone Unavailable Primary Care Provider Unavailabl e Source Comments The following information is NOT included in Care Everywhere downloads:Psychiatric notes, ECG results, Cardiac Rehab notes, Pulmonary Function notes, data from Smart[employer] (includes but not limited toPregnancy data,audiograms, eye exams, pre-surgical evaluation notes, well-child exam data).[facility] Social History Tobacco Use Types Packs/Day Years Used Date Smoking Tobacco: Never Assessed Comments Unknown Sex and Gender Information Value Date Recorded Sex Assigned at Not on file Legal Sex Female 11:52 AM EST Gender Identity Not on file Sexual Orientation Not on file Plan of Treatment Health Maintenance Due Date Last Done Comments Colonoscopy 1977 HIV Test 1992 Hepatitis C Antibody 1995 Tdap Booster 1995 Hepatitis A (HAV) Vaccine (optional start 19+ years) 1996 Hepatitis B (HBV) Vaccine (1 of 3 - 19+ 3-dose series) 1996 Tetanus (Td or Tdap) Booster 1996 Pap Smear 1998 Mammography 2017 CRC Screening 2022 Cholesterol 2022 Cologuard (Stool DNA) 2022 FIT 2022 COVID-19 Vaccine ( - 2023-2 5 season) 2025 Influenza Vaccine (#1) 2025 Shingles (RZV) Vaccine (1 of 2) 2027 Pneumococcal Vaccine(s) Aged Out No l onger eligible based on patient's age to complete this topic Insurance [employer] - HMO/PPO/POS
--- NOTE | 2025-07-11 07:35 | MM_ITS ---
Patient Name: CAROLINE RAMIREZ MR#: [id number] : 1975 Exam Date: 07/11/2025 Ordering Doctor: DR EUGENE CARDOZO M.D. RADIOLOGY REPORT PROCEDURE: MM TOMOSYNTHESIS SCREENING BI COMPARISON: MM TOMOSYNTHESIS SCREENING BI, 03/05/2024. MG MAMM SCREEN BILL W CAD, 07/10/2018. MAMMO BILL DX, 02/20/2005. INDICATIONS: Screening Calculator Name NCI Breast Cancer Risk Assessment Tool 5 Year Breast Cancer Risk 1.00% Lifetime Breast Cancer Risk 10.20% Personal Breast Cancer No Personal Ovarian Cancer No Treatments None Family Cancers None LOCATION: [facility] BREAST COMPOSITION: The breasts are heterogeneously dense, which may obscure small masses. FINDINGS: RIGHT BREAST: No significant suspicious finding. LEFT BREAST: No significant suspicious finding. DIAGNOSTIC CATEGORY 1--NEGATIVE. RECOMMENDATIONS: ROUTINE MAMMOGRAM AND CLINICAL EVALUATION IN 12 MONTHS. Dictated by: Allan Collado DO on 07/11/2025 at 12:54 Approved by: lAlan Collado DO on 07/11/2025 at 12:55
== END 2025-07-11 07:32 | disposition home or self-care (01) ==
LOC: MAMMO 07:32
PROVIDERS: PCP Family Medicine; Visit Provider Family Medicine
DX: Z12.31 Encounter for screening mammogram for malignant neoplasm of breast (principal)
CPT/HCPCS: 77063; 77067